=== PATIENT | female | born 1960 | race Caucasian/White ===

== ENCOUNTER → 2017-06-02 16:07 | Outpatient (CLI) | payer OTHER, SELFPAY ==
[2017-06-02 17:30] LABS: Absolute Lymphocyte Count 1.44 X10^3/ul (0.83-4.51); Absolute Neutrophil Count 3.6 X10^3/uL (2.0-7.7); Basophil# 0.05 X10^3/uL; Basophil% 0.9 % (0-1); Eosinophil# 0.07 X10^3/uL; Eosinophils% 1.2 % (0-5); Hematocrit 41.5 % (37-47); Hemoglobin 13.9 g/dl (12.0-15.0); Lymphocyte # 1.44 X10^3/ul (4.0); Lymphocyte % 25.6 % (19-41); Mean Corp Hgb Conc 33.5 g/gl (32-36); Mean Corpuscular Volume 86.5 fL (81-99); Mean Platelet Vol. 12.4 fl (6.2-12.0); Monocyte# 0.51 X10^3/uL; Monocyte% 9.1 % (0-10); Neutrophil # 3.56 X10^3/uL (2.7-7.7); Neutrophil % 63.2 % (47-70); Platelet Count 209 K/mm3 (150-450); RBC Distribution Width SD 40.4 fl (35.1-43.9); White Blood Count 5.6 K/mm3 (4.4-11.0)
[2017-06-02 17:39] LABS: POSITIVE COUNT NO; POSITIVE DIFFERENTIAL NO; POSITIVE MORPHOLOGY NO
[2017-06-02 18:25] LABS: AST(SGOT) 23 U/L (15-37); Alanine Aminotransfer ALT/SGPT 43 U/L (13-56); Albumin, Serum 3.9 g/dL (3.2-5.0); Alkaline Phosphatase 77 U/L (45-117); Anion Gap 9 (5-15); BUN 20 mg/dL (7-18); BUN/Creat Ratio 30.2 RATIO (10-20); Chloride 104 mmol/L (98-107); Creatinine, Serum 0.66 mg/dL (0.55-1.02); EST Glomerular Filtration Rate 98 mL/min (>60); Est Glom Filt Rate - Afr Amer 119 mL/min (>60); Globulin 3.8 g/dL (2.2-4.2); Glucose 98 mg/dL (74-106); Potassium 3.7 mmol/L (3.5-5.1); Protein, Total 7.7 g/dL (6.4-8.2); Sodium Level 139 mmol/L (136-145); Thyroid Stim Hormone (TSH) 2.17 uIU/mL (0.358-3.74)
[2017-06-02 19:58] LABS: Vitamin D,25 Hydroxy 21.1 ng/mL (19.95-100.01)
== END ==
PROVIDERS: Family Provider Family Medicine Geriatric Medicine; PCP Family Medicine Geriatric Medicine; Visit Provider Family Medicine Geriatric Medicine
DX: E11.9 Type 2 diabetes mellitus without complications (principal); E55.9 Vitamin D deficiency, unspecified; I10 Essential (primary) hypertension
CPT/HCPCS: 36415; 80053; 82306; 84443; 85025

== ENCOUNTER → 2017-07-07 11:56 | Outpatient (CLI) | payer OTHER, SELFPAY ==
[2017-07-07 13:52] LABS: Prolactin 4.5 ng/mL
== END ==
LOC: LAB 11:58
PROVIDERS: Visit Provider Nurse Practitioner Women's Health
DX: N64.52 Nipple discharge (principal)
CPT/HCPCS: 36415; 84146

== ENCOUNTER → 2017-07-10 13:37 | Outpatient (CLI) | payer OTHER, SELFPAY ==
--- NOTE | 2017-07-10 13:39 | US_ITS ---
STUDY: ULTRASOUND BREAST - LEFT REASON FOR EXAM: Female, 56 years old. nipple discharge TECHNIQUE: Axial and longitudinal images of the LEFT breast were performed with a high resolution ultrasound transducer. COMPARISON: None. FINDINGS: LEFT Breast: A dilated duct is seen in the retroareolar region measuring 2 mm in diameter. There is no evidence of intraductal mass. There is no abnormal cyst formation. There is no soft tissue mass in the retroareolar region. US/Breast Limited Unilateral IMPRESSION: Dilated duct in the retroareolar region. ASSESSMENT CATEGORY: BIRADS Category 2: Benign. A letter regarding these results will be sent to the patient by the facility within 30 days. Electronically Signed: Keron Sanders MD at 10:01 EDT Tel , Service support ,
--- NOTE | 2017-07-10 13:41 | HPBI_ITS ---
MAMMOGRAPHY - BILATERAL DIAGNOSTIC REASON FOR EXAM: Female, 56 years old. PT HAD POSSIBLE LT BREAST DISCHARGE 1 WEEEK AGO- FOUND BROWNISH COLOR IN BRA , UNSURE IF IT CAME FROM BREAST LEFT BREAST ALWAYS ITCHY LT STEREO BX 1998 OPEN HEART SX 2004 PERTINENT HISTORY: Non-contributory. TECHNIQUE: Digital bilateral breast aure (3D mammographic acquisition) in the CC and MLO projections. 2-D mediolateral oblique (MLO) and craniocaudad (CC) views of both breasts were obtained. CAD: Full Field Digital Mammography with Computer Added Detection was performed. COMPARISON: Jul 08 2016 9:38am FINDINGS: Breast Composition: The breasts are heterogeneously dense, which may obscure small masses. There are no dominant masses or suspicious calcifications. No other significant abnormalities are identified. An ultrasound of the retroareolar region left breast is still recommended and would be performed today. HPBI/DIAG MAMM W/CAD, BILAT IMPRESSION: Further ultrasonographic evaluation recommended, as described above. (I) ASSESSMENT CATEGORY: BIRADS Category 0: Incomplete. Need additional imaging evaluation. A letter regarding these results will be sent to the patient by the facility within 30 days. Approximately 10% of breast cancers are not detected by mammography. A normal mammogram should not delay biopsy of a clinically suspicious abnormality. Electronically Signed: Keron Sanders MD at 15:20 EDT Tel , Service support ,
== END ==
PROVIDERS: Visit Provider Nurse Practitioner Women's Health
DX: N64.52 Nipple discharge (principal); Z12.31 Encounter for screening mammogram for malignant neoplasm of breast
CPT/HCPCS: 76642; 77062; 77063; 77066; G0279

== ENCOUNTER → 2017-09-01 14:03 | Outpatient (CLI) | payer OTHER, SELFPAY ==
[2017-09-03 11:04] LABS: HPV APTIMA, High Risk Negative (Negative)
== END ==
PROVIDERS: Visit Provider Nurse Practitioner Women's Health
DX: Z12.4 Encounter for screening for malignant neoplasm of cervix (principal)
CPT/HCPCS: 88175; G0145

== ENCOUNTER → 2017-11-10 16:35 | Outpatient (CLI) | payer OTHER, SELFPAY ==
[2017-11-10 17:11] LABS: Absolute Lymphocyte Count 1.68 X10^3/ul (0.83-4.51); Absolute Neutrophil Count 3.9 X10^3/uL (2.0-7.7); Basophil# 0.03 X10^3/uL; Basophil% 0.5 % (0-1); Eosinophils% 1.6 % (0-5); Hematocrit 39.2 % (37-47); Lymphocyte # 1.68 X10^3/ul (4.0); Lymphocyte % 26.6 % (19-41); Mean Corp Hgb Conc 33.2 g/gl (32-36); Mean Corpuscular Volume 87.3 fL (81-99); Monocyte% 9.5 % (0-10); Neutrophil # 3.89 X10^3/uL (2.7-7.7); Neutrophil % 61.6 % (47-70); Platelet Count 187 K/mm3 (150-450); RBC Distribution Width CV 12.7 % (11.6-14.6); Red Blood Count 4.49 M/mm3 (4.2-5.4); White Blood Count 6.3 K/mm3 (4.4-11.0)
[2017-11-10 17:37] LABS: ALB/GLOB Ratio 1.1 RATIO (0.9-2.4); AST(SGOT) 25 U/L (15-37); Alanine Aminotransfer ALT/SGPT 29 U/L (13-56); Albumin, Serum 3.9 g/dL (3.2-5.0); Alkaline Phosphatase 72 U/L (45-117); Anion Gap 7 (5-15); BUN 21 mg/dL (7-18); BUN/Creat Ratio 32.4 RATIO (10-20); Calcium,Total 8.9 mg/dL (8.5-10.1); Chloride 107 mmol/L (98-107); Creatinine, Serum 0.65 mg/dL (0.55-1.02); EST Glomerular Filtration Rate 100 mL/min (>60); Est Glom Filt Rate - Afr Amer 121 mL/min (>60); Globulin 3.7 g/dL (2.2-4.2); Glucose 90 mg/dL (74-106); Potassium 3.8 mmol/L (3.5-5.1); Protein, Total 7.6 g/dL (6.4-8.2); Sodium Level 141 mmol/L (136-145); Thyroid Stim Hormone (TSH) 3.75 uIU/mL (0.358-3.74)
[2017-11-10 18:17] LABS: POSITIVE COUNT NO; POSITIVE DIFFERENTIAL NO; POSITIVE MORPHOLOGY NO
[2017-11-12 13:10] LABS: Hep C Antibodies <0.1 s/co ratio (0.0-0.9)
== END ==
LOC: POLAB3 16:36
PROVIDERS: Visit Provider Family Medicine Geriatric Medicine
DX: E11.9 Type 2 diabetes mellitus without complications (principal); I10 Essential (primary) hypertension; Z13.89 Encounter for screening for other disorder
CPT/HCPCS: 36415; 80053; 84443; 85025; 86803